=== PATIENT | female | born 1945 | race Caucasian/White ===

== ENCOUNTER 2020-12-25 08:51 | Emergency (ER) | payer OTHER ==
--- OUTSIDE RECORDS SUMMARY | 2020-12-25 08:54 | XMS REPORT | Continuity of Care Document ---
:1945 Author Organization [facility] t Address [address] [place] [address] Care Team Providers Name Role Phone Gisel MEHTA Primary Care Physician Yassine Attending Clinician Unavailable CO19 Attending Clinician Unavailable Libertad Lara MD Attending Clinician Misael Trejo MD Attending Clinician JUNE Attending Clinician Unavailable DR Kj PLASENCIA Attending Clinician Unavailable GISEL Attending Clinician Unavailable STACEY Admitting Clinician Unavailable JUNE Admitting Clinician Unavailable DR Kj PLASENCIA Admitting Clinician Unavailable GISEL Admitting Clinician Unavailable Payers Payer Name Policy Type Policy Effective Date Expiration Date Sour ce Number MEDICAREMEDICARE PART [id number] 2011 Hong lassiterlayo A AND 00:00:00 Worship [id number] 2010- JostinLAKE NORDEN NDMedicare COMMERCIAL MISCMISC [id number] 2016 [place] MEDICARE 00:00:00 Worship [id number] /07/2016-JostinCommer cial Problems Condition Condition Condition Status Onset Resolution Last Treating Co mments Source Name Details Category Date Date Treatment Clinician Date Traumatic Traumatic Disease Active 2018-07 Overview: [place] complete complete 07-20 Shweta oneil tear of tear of 00:00: g of this st right right 00 note rotator rotator might be cuff cuff different from the original. Added automatic ally from request for surgery [id number] Encounter Encounter Problem Active Uni vers for for ity of administra administra [place] tion of tion of Physici COVID-19 COVID-19 ans vaccine vaccine Allergies, Adverse Reactions, Alerts Allergy Allergy Status Severity Reaction(s) Onset Inactive Treating Comm ents Source Name Type Date Date Clinician Makenna Propi Active GI 2018-07 [place]il [place] to Intolerance 0-23 e Metho di adverse 00:00: vomiting st reaction 00 s to drug codeine DA Active SV [facility] 03-21 [place] 00:00: Orthope 00 [facility] [place] Allergy Active Univers CAPS to drug ity of (finding [place] ) Physici ans Family History Family Member Diagnosis Comments Start Date Stop Date Source Natural mother Osteoporosis [place] [facility] Social History Social Habit Start Date Stop Date Quantity Comments Source History of tobacco Cigarette Smoker [place] use Worship Cigarettes smoked 2020-02-05 2020-02-05 [place] current (pack per 00:00:00 00:00:00 Methodi ) - Reported Cigarette 2020-02-05 2020-02-05 [place] pack-years 00:00:00 00:00:00 Worship Tobacco use and 2020-02-05 2020-02-05 Never used [place] exposure 00:00:00 00:00:00 Worship Alcohol intake 2020-02-05 2020-02-05 Current [place] 00:00:00 00:00:00 non-drinker of Worship alcohol (finding) Sex [birth year] [place] 00:00:00 00:00:00 Worship Smoking Status Start Date Stop Date Source Current every day smoker 2020-02-05 00:00:00 Eliezer puente Worship Medications Ordered Filled Start Stop Current Ordering Indication Dosage Frequency Signature Comments Components Source Medication Medication Date Date Medication? Clinician (SIG) Name Name omeprazole Yes 40mg QD Take 1 [place] (PriLOSEC) 6-24 capsule Method i 40 MG 00:00: ([address] capsule 00 total) by mouth daily. fenoprofen 2018-07 Yes 600mg QD Take 600 [place] (NALFON) 1-25 mg by Method[facility] 600 mg 09:24: mouth st tablet 49 nightly. ascorbic 2018-07 Yes 1000mg QD Take 1,000 [place] acid, 1-25 mg by [facility] vitamin C, 09:24: mouth st (vitamin C) 49 daily. 1000 MG tablet cholecalcif Yes Q7D once a [place], 9-13 week. Q Methodi vitamin D3, 00:00: saturdays s t (VITAMIN 00 D3) 5,000 unit capsule omeprazole 2020- No 40mg QD Take 40 mg [place] (PriLOSEC) 03-06 by mouth Meth paulino 40 MG 00:00: 00:[address] capsule 00 :00 needed. Immunizations Ordered Immunization Filled Immunization Date Status Commen ts Source Name Name Pfizer-BioNTech 2020-09-06 Completed Universit y of COVID-19 Vacc 30 14:09:00 [place] [facility] MCG/0.3ML Intramuscular Suspension Pfizer-BioNTech 2020-08-12 Completed Universit y of COVID-19 Vacc 30 13:00:00 [place] [facility] MCG/0.3ML Intramuscular Suspension Vital Signs Vital Name Observation Time Observation Value Comments Source Body height 2020-02-05 11:06:00 170.2 cm [place] [facility] Body weight 2020-02-05 11:06:00 78.744 kg Wale Mcginnis BMI 2020-02-05 11:06:00 27.19 kg/m2 Wale Mcginnis Procedures This patient has no known procedures. Plan of Care Planned Activity Planned Date Details Comments Source Future Scheduled 2021-12-08 COLONOSCOPY SCREENING [facility] Worship Test 00:00:00 [code = COLONOSCOPY SCREENING] Future Scheduled 2021-02-07 INFLUENZA VACCINE [place] [facility] Test 00:00:00 [code = INFLUENZA VACCINE] Future Scheduled 2001 Screening for [facility] thodist Test 00:00:00 malignant neoplasm of lung (procedure) [code = 504198863] Future Scheduled 1996-01-30 BREAST CANCER [facility] thodist Test 00:00:00 SCREENING [code = BREAST CANCER SCREENING] Future Scheduled 1996-01-30 SHINGLES VACCINES [place] [facility] Test 00:00:00 (#1) [code = SHINGLES VACCINES (#1)] Future Scheduled 1964-01-30 Hepatitis C screening [place] [facility] Test 00:00:00 (procedure) [code = 047513773] Future Scheduled 1958 COVID-19 VACCINE (1) Eliezer puente Worship Test 00:00:00 [code = COVID-19 VACCINE (1)] Encounters Start End Encounter Admission Attending Care Care Encounter Source Date/Time Date/Time Type Type Clinicians Facility Department ID 2020-12-18 2020-12-18 Emergency E [facility] [id number] [facility] 13:53:00 13:53:00 2020-08-12 2020-08-12 Appointmen CO19, UTP UTP [id number] Univers 13:00:00 13:00:00 t; CO19, NURSE-COOLE i ty of NURSE-COOL Y [place] EY Physici ans 2020-02-05 2020-02-05 [facility] [id number] [place] 00:00:00 00:00:00 ANDRES 506 Method i 2020-01-01 2020-01-02 [facility] [id number] [place] 00:00:00 00:00:00 ALMA 425 Metho di 2019-10-08 2019-10-09 Outpatient ALVA, [facility] [id number] [place] 00:00:00 00:00:00 ALMA 506 Metho di 2019-09-11 2019-09-11 [facility] 2100 [id number] [place] 00:00:00 00:00:00 ANDRES 530 Method i 2019-05-23 2019-05-24 Outpatient STACEY [facility] [id number] [place] 00:00:00 00:00:00 ANDRES 917 Method i 2019-05-01 2019-05-01 Outpatient STACEY [facility] 2100 [id number] [place] 00:00:00 00:00:00 ANDRES 030 Method i 2019-05-01 2019-05-01 [facility] [id number] [place] 00:00:00 00:00:00 ANDRES 688 Method i 2018-12-31 2018-12-31 Outpatient C ANUEL-SHANNAN [facility] [id number] [place] 13:17:00 23:59:[address] [facility] 2018-04-10 2018-04-10 Outpatient Kj PLASENCIA [facility] [id number] [place] 13:05:00 23:59:00 [facility] 2018-01-01 2018-01-01 Outpatient Kj PLASENCIA [facility] [id number] [place] 14:16:00 23:59:00 [facility] 2017-12-30 2017-12-30 Outpatient Kj PLASENCIA [facility] [id number] [place] 13:29:00 23:59:00 [facility] Results Test Description Test Time Test Comments Results Result [facility] e Comments MRI BRAIN WO/W 2020-12-17 16:39:16 [facility] : 1945 Sex: F CL INICAL INDICATION: R26.81 Unsteadiness on feetR42 Dizziness and giddiness M81.0Age-related osteoporosis without current pathological fractureMODALITY: MyBeautyCompare 3T MRITECHNIQUE: Multiplanar SE, FSE and inversion recovery pulse sequences of the brain were performed without contrast enhancement. Diffusion weighted imaging was utilized. IV contrast, 16 ml Dotarem are injected IV and post-contrast T1 axial and coronal images obtained.IMPRESSION:1 . There are no intracranial abnormalities.2. There is no pathologic intracranial enhancement.3. Stable mild to moderate chronic white matter microvascular ischemia.FINDINGS:COM PARISON: MRI brain 03/10/2020. MRA neck, 12/17/2020 and ultrasound of carotid artery 12/17/2020There are numerous supratentorial foci of increased T2 and FLAIR signal intensity, all subcentimeter in size, consistent with sequelae of chronic white matter microvascular ischemia. There is no evidence of intracranial demyelinating disease.There are no acute infarcts or hemorrhages. There is no acute restriction on diffusion sequences.There are no masses in the brain or extra axial spaces. There is no hydrocephalus.Sella and parasellar structures are normal. Central skull base is intact. No orbital abnormalities are seen.The craniocervical junction is normal without mass or Chiari malformation.The brainstem, midbrain and cerebellum are normal. Bilateral internal auditory canals are normal and symmetric.Normal flow voids are seen intracranially in carotid and vertebrobasilar arteries. The dural venous sinuses are patent.The calvarium is intact. Extracranial soft tissues are unremarkable. There is no confluent paranasal sinus disease. Mastoid air cells are clear.No pathologic intracranial enhancement is observed. MRA NECK WO 2020-12-17 16:16:48 [facility] GU[facility] : 1945 Sex: F CL INICAL INDICATION: R26.81 Unsteadiness on feetR42 Dizziness and giddiness M81.0Age-related osteoporosis without current pathological fractureMODALITY: MyBeautyCompare 3T MRITECHNIQUE: Two dimensional and three dimensional time of flight techniques are utilized. 2D and MIP reconstructions are performed.IMPRESSION: 1. No evidence of significant carotid artery stenosis, ulceration or luminal irregularity in the neck.2. Vertebral arteries are patent throughout the neck without stenosis or luminal irregularity.FINDINGS :COMPARISON: MRI brain studies 03/10/2020 and 12/17/2020. Carotid ultrasound 12/17/2020.Bilateral common carotid arteries are patent .Carotid bulbs are patent without stenosis or ulceration.Bilateral cervical internal carotid arteries are patent to the level of the skull base without significant stenosis or luminal irregularity.Bilatera l vertebral arteries are patent to the level of the skull base. No visible stenosis, filling defect or luminal irregularity.There is no evidence of vascular dissection in the neck.Carotid stenosis measurement - [facility] 195: 3100F US CAROTID 2020-12-17 W/DOPPLER 15:42:34 [facility]K GUADARRAMA : 1945 Sex: F CL INICAL INDICATION: R42 Dizziness and giddinessTECHNIQUE: Realtime sonographic imaging, color and spectral doppler evaluation of the extracranial carotid circulation of the neck were performed bilaterally. Intima-media thickness determination is performed as well.COMPARISON: noneFINDINGS:Bilatera l common carotid and right internal carotid atherosclerotic plaques are noted. The it appear sonographically relatively homogeneous. No definite ulcerations. Based upon internal to common carotid artery diameter ratios, maximal degree of stenosis is 50% or less.Velocities in both right and left common carotid arteries, carotid bulbs and cervical internal carotid arteries are normal bilaterally. There is an elevated peak systolic velocity in the right external carotid artery of unknown significance. The flow velocity ratio is right 1.07, left 0.21. There are no visible arterial dissections.External carotid arteries are patent and normal.Vertebral flow is antegrade and normal bilaterally.Carotid intima-media thickness is 0.1 mm right, 0.1 mm left.IMPRESSION:1. Right: ICA stenosis zero % by velocity criteria.2. Left: ICA stenosis zero % by velocity criteria.3. Bilateral common carotid and right internal carotid artery plaquing is present producing 50% or less stenosis of the vessels based upon internal to common carotid artery diameter ratios. Co nsensus Panel Doppler US Criteria for diagnosis of ICA stenosis 50%: ICA PSV 125 cm/sec, ICA/CCA ratio 2.050-69%:ICA PSV 125-230 cm/sec, ICA/CCA ratio 2.0-4.0 70%: ICA PSV 230 cm/sec, ICA/CCA ratio 4.0Carotid stenosis measurement - [facility] 195: 3100F For official use only - MRI [facility] W/O 2019-04-04 Patient Name: CONT RT 16:31:00 ERIK GUADARRAMA Unit No: [id number] EXAMS: CPT CODE: [id number] MRI [facility] [place] [address] MRI OF THE RIGHT SHOULDER DIAGNOSIS: 1. Full-thickness tear supraspinatus tendon with 2.6 cm of retraction. The tear measures 2.2 cm in AP diameter. 2. Complete tear of the proximal biceps tendon which is retracted distally along with a partial-thickness tear of the subscapularis tendon without retraction. There is subscapularis tendinosis without muscular atrophy. There is an associated tear of the superior labrum. 3. Infraspinatus tendinosis without evidence for tear or retraction. There is volume loss in the muscle without fatty atrophy. COMMENT: COMPARISON: No prior exams available. Scans were performed in the paracoronal, parasagittal and axial planes utilizing T1 , spin density with fat saturation and T2-weighting with and without fat saturation. The rotator cuff is as described. The acromion is horizontal with AC joint degenerative change. The superior labrum is torn. Joint and bursal effusions are present. at 1631 Reported and signed by: Ignacio Ayala MD CC: Zeinab Dillard MD Technologist: DIMITRY VALERA MRI Transcribed D/ (1631) [facility] Orthopedic NAME: ERIK GUADARRAMA [address] [facility] PHYS: GOMMU.01 - Zeinab Dillard : 1945 AGE: 74 SEX: F [place], [place] [address] LOC: Y.MRI PHONE #: [phone] EXAM DATE: 04/04/2019 STATUS: REG CLI FAX #: [phone] RAD #: D/C DT PAGE 1 Signed Report Patient Name: ERIK GUADARRAMA Unit No: [id number] EXAMS: CPT CODE: [id number] MRI UP JNT W/[place] [id number] <Continued> Orig Print D/T: S: 04/04/2019 (1634) [facility] Orthopedic NAME: ERIK GUADARRAMA [address] [facility] PHYS: GOMMU.01 - GoZeinab florence M : 1945 AGE: 74 SEX: F [place], [place] [address] LOC: Y.MRI PHONE #: [phone] EXAM DATE: 04/04/2019 STATUS: REG CLI FAX #: [phone] RAD #: D/C DT PAGE 2 Signed Report BASIC METABOLIC PANEL 2019-03-21 16:33:00 Test Item Value Reference Range Interpretation Comme nts SODIUM (test code = NA) 140 mmol/L 136-145 N POTASSIUM (test code = K) 4.4 mmol/L 3.5-5.1 N CHLORIDE (test code = CL) 103.0 mmol/L 98-107 N CARBON DIOXIDE (test code = 28.1 mmol/L 21-32 N CO2) GLUCOSE (test code = GLU) 78 mg/dL 70-110 N BLOOD UREA NITROGEN (test code 20 mg/dL 7-18 H = BUN) GLOMERULAR FILTRATION RATE 73.5 >60 U nit of measure: (test code = GFR) mL/min/1.7 3 [id number] Range:Healthy A dults >90 mL/min/1.73 m2 For Chronic Kidney Disease: Stage II Mi ld Decrease in GFR 60-9 0 Stage III Moderate Decrease in GFR 30-59 Stage IV Severe Decrease in GFR 15-29 Stage V Kidney Failure <15 CREATININE (test code = CREAT) 0.77 mg/dL 0.55-1.30 N CALCIUM (test code = CA) 9.2 mg/dL 8.2-10.1 N WID-U/S BREAST [id number] 09:03:50Addendum:Typographical error noted. Small subcentimeter cysts are identified at the 2and 9:00 positions. Dilated duct with small cyst at the 2:00 position alsoseen.Impression:1. ACR BI-RADS 2, benign fi ndings.Recommendations: Routine yearly mammographic follow-upWMMMOGRAM DIAGNOSITC UNI RIGHT CAD INC [id number] 09:02:02Exam: Unilateral right diagnostic digital mammogramHistory: Palpable lumpLocation: [id number]:Compari son is made exam of 04/10/18. Focal outpouching within the medial rightbreast implant noted without significant change. The breast parenchyma isheterogeneously dense without change. Benign coarse calcifications persists.The images were reviewed with R2.Sonography of the same day demonstrated small cysts at the 2 and 9:00positions.Impression:ACR BI-RADS 2, benign findings.Recommendations: Routine yearly mammographic follow-up.WMMMOGRAM DIAGNOSTIC BILATERAL INC CAD [id number] 14:23:20 Exam: Bilateral diagnostic digital mammogramLocation: [id number]: Palpable lump on the rightComparison: 08/23/16FINDINGS:No dominant masses or clustered microcalcifications are identified. Migrationof the right implant inferiorly and medially noted in the area of palpableabnormality. Sonographically the implant appeared intact but with focaloutpouching and migration. The breast parenchyma demonstrates scatteredfibroglandular elements without change. Benign coarse calcifications are againseen bilaterally. R2 computer aided detection was utilized as an aid for interpreting theseimages.IMPRESSION:1. ACR BI-RADS 2. Benign findings. Recommendation: Routine yearly mammographic follow-up recommended.[facility]/S BREAST [id number] 14:21:21Exam: Right breast ultrasoundHistory: Breast lumpLocation: [id number]: High resolution color and duplex sonography of all 4 quadrants andretroareolar region of the right breast was performed.Findings:T here is mild inferior migration of the right implant medially with slightoutpouching of the implant but without evidence of separate extracapsular orintracapsular rupture. No solid or cystic masses.Impression:Implant migration inferiorly and medially likely corresponding to the palpableabnormality. No definite rupture.XR SPINE LUMBAR W/FLEX/EXT [id number] 15:16:40Lumbar spine, 5 viewsLocation Code: [id number] HISTORY: LUMBAR RADICULOPATHY & SPONDYLOSISCOMPARISON: None.COMMENTS: AP, oblique, and lateral views of the lumbar spine were obtained.There is approximately 15 degrees apex rightward curvature centered at L2.There is 1 cm anterolisthesis of L4 on L5.There is no acute fracture . Thereis moderate multilevel disc space narrowing with endplate sclerosis andosteophyte formation. There is no abnormal motion or translation with flexionor extension. The soft tissues are unremarkable.IMPRESSION:1. Mild dextroscoliosis.2. Grade 1 anterolisthesis of L4 on L5.3. Moderate multilevel lumbar spondylosis.MRI SPINE LUMBAR W/O [id number] 14:52:35MRI OF THE LUMBAR SPINE WITHOUT CONTRASTLocation: R 16INDICATION: M51.36: OTHER INTERVERTEBRAL DISC DEGENERATION, LUMBAR REGION. COMPARISON: NoneTechnique: Sagittal T1, sagittal T2, sagittal T2 fat suppressed, axial T1, and axial J9yftlydxf images of the lumbar spine were obtained without contrast. DISCUSSION:Number of non-rib bearing lumbar vertebral bodies: 5.Alignment: Normal lordosis. Mild thoracolumbar dextroscoliosis is centered atapproximately L2-L3.Vertebrae: No definite evidence for fracture, or neoplasm.Conus medullaris: Normal, ends at L1-B1Wzqzk equina: No masses or arachnoiditis.Po sterior paraspinal muscles: Well preserved. No signal abnormalities.Soft tissues: Apparent posterior incision signal changes. A small A3movkczgcnbow lesion in the upper left kidney may be a cyst.Mild to moderate multilevel disc degeneration is most prominent at L1-L2 andL2-L3. There are nonspecific in flammatory endplate changes at L1-L2 and L2-L3.L1-L2: Mild canal stenosis due to disc bulge and ligamentum flavum thickening.The left lateral recess is slightly effaced. Mild bilateral foraminal stenosesdue to disc bulge and facet arthrosis.L2-L3: There is mild retrolisthesis of L2 on L3. Mild canal stenosis due todisc bulge and ligamentum flavum thickening. The left lateral recess isslightly effaced. Mild to moderate left foraminal stenoses due to disc bulgeand facet arthrosis. No significant rightforaminal stenosis.L3-L4: There is mild retrolisthesis of L3 on L4. Mild to moderate canalstenosis due to disc bulge and ligamentum flavum thickening. Both lateralrecesses are slightly effaced. There is a small left posterior epiduralsynovial cyst. Mild right and eizg-yp-bkzchpmw left foraminal stenosis due todisc bulge and facet arthrosis.L4-L5: Grade 1 anterolisthesis of L4 on L5 is due to advancedfacet arthrosis.Apparent laminectomy changes without significant canal stenosis. Severe rightand moderate left foraminal stenoses due to uncovered disc bulge and facetarthrosis.L5-S1: Patent canal and foramina.IMPRESSION:1. Mild to moderate multilevel disc degeneration, most prominent at L1-L2 andL2-L3. There are nonspecific inflammatory endplate changes at L1-L2 and L2-L3. Mild thoracolumbar dextroscoliosis is centered at approximately L2-L3.2. Grade 1 anterolisthesis of L4 on L5 due to advanced facet arthrosis.Apparent laminectomy changes at L4- L5.3. Multilevel degenerative canal stenoses - mild to moderate at L3-L4.4. Multilevel bilateral degenerative foraminal stenoses - severe right andmoderate left at L4-L5.CT CHEST W/O [id number] 14:13:59CT chest without contrast.Location Code: [id number] HISTORY: Chest pain, smokerCOMPARISON: NoneTechnique: Helical CT of the chest was performed without contrast. Thin sectionaxial, sagittal and coronalimages were obtained. Automatic exposure controlwas utilized. FINDINGS:Mild centrilobular emphysematous changes are noted within the lungs. The lungsare otherwise clear. There is no nodule, mass, consol idation or effusion. Thecentral airways are patent. There is no mediastinal, hilar, or axillary adenopathy. There is no pericardialeffusion. The heart is not enlarged. The mediastinal vasculature isunremarkable. There is no mediastinal hematoma or fluid collection.Images through the upper abdomen are unremarkable. Mild degenerative changes are noted throughout the spine. Peripherallycalcified breast implants are noted. The skin and surrounding soft tissues areunremarkable.IMPRESSION: Mild emphysema.Otherwise, no acute intrathoracic abnormality.XR RIBS RIGHT UNIL 3VW W/PA [id number] 13:55:33Right rib series, a views.Location Code: D4 CLINICAL HISTORY: Right rib pain.COMMENT: Frontal view of the chest shows the lungs to be clear with nopneumothorax, consolidation, or effusion. The cardiomediastinal silhouette isunremarkable. AP and oblique views of the right ribs demonstrate no displaced fracture. Thesoft tissues are unremarkable.IMPRESSION: No acute abnormality.XR CHEST 2 VIEW 2016-08-30 13:53:30PA and lateral chest, 2 views.Location code: [id number] HISTORY: Rib pain, coughCOMPARISON: 02/04/2016COMMENTS: The lungs are clear and well inflated. The costophrenic angles aresharp. The cardiomediastinal silhouette is unremarkable. The bones are intact.IMPRESSION: Stable chest with no acute abnormality.MAMMOGRAM SCREENING CAD INC [id number] 09:34:51 Exam: Bilateral digital mammogramLocation: [id number]: Routine screening.FINDINGS:No dominant massesor clustered microcalcifications are identified. Bilateralsubpectoral breast implants again demonstrate capsular calcifications withoutchange from 01/31/12. The breast parenchyma is otherwise heterogeneously densewith scattered coarse benign calcifications bilaterally without intervalchange. R2 computer aided detection was utilized as an aid for interpreting theseimages.IMPRESSION:1. ACR BI-RADS 2. Benign findings. Recommendation: Routine yearly mammographic follow-up recommended. [employer] AccreditationFDA CertifiedBoard Certified Radiologists(ARRT) Registered Mammography TechnologistsNOTE: 1. A negative report should not delay biopsy if a dominant or clinicallysuspicious mass is present. 4 to 8% of cancers are not identified by x-ray.2. A negative report may reinforce clinical impression.3. Adenosis and dense breasts may obscure an underlying neoplasm.4. False positive results average 6 to 10%.5. Complete assessment of BI-RADS wording:A. Category 0 = Needs Additional Imaging Evaluation.B. Category 1 = Negative mammogram.C. Category 2 = BenignFinding.D. Category 3 = Probably Benign Finding - Short Interval Followup Suggested.E. Category 4 = Suspicious Abnormality.F. Category 5 = Highly Suggestive Of Malignancy.G. Category 6 = Known Malignancy.
[2020-12-25 10:11] LABS: Absolute Lymphocytes (CBC) 2.1 K/uL (0.7-4.9); Basophils % 1.2 % (0-1.3); Hematocrit 42.8 % (36.0-45.0); Lymphocytes % 34.6 % (15.3-44.8); RBC Red Blood Cell Count 4.76 M/uL (3.86-4.86)
[2020-12-25 10:28] LABS: ALT/SGPT 20 U/L (12-78); AST/SGOT 17 U/L (15-37); Albumin 3.9 g/dL (3.4-5.0); Alkaline Phosphatase 110 U/L (45-117); BUN Blood Urea Nitrogen 12 mg/dL (7-18); Bicarbonate 30 mmol/L (21-32); Bilirubin Direct < 0.1 mg/dL (0-0.2); Bilirubin Total 0.3 mg/dL (0.2-1.0); Glucose Level 87 mg/dL (74-106); Lipase 87 U/L (73-393); Protein, Total 7.3 g/dL (6.4-8.2); Sodium Level 141 mmol/L (136-145)
--- NOTE | 2020-12-25 11:19 | EDPHYS ---
Physician Documentation [facility] Name: Carlene Choi Age: 75 yrs Sex: Female : 1945 Arrival Date: 12/25/2020 Time: 08:55 Bed 18 Private MD: ED Physician Sanchez Reina HPI: 12/25 11:15 This 75 yrs old Female presents to ER via Wheelchair with complaints of ma2 Tremors. 11:15 Onset: The symptoms/episode began/occurred gradually, 2 day(s) ago. Associated signs ma2 and symptoms: Pertinent negatives: ataxia, chest pain, combativeness, confusion. Severity of symptoms: At their worst the symptoms were very mild in the emergency department the symptoms are unchanged. The patient has experienced similar episodes in the past. had normal mri brain and cta head neck 2 days ago . Historical: - Allergies: 09:49 Darvon; ss 09:49 Codeine; ss - Home Meds: 09:49 Omeprazole Oral [Active]; ss - PMHx: 09:49 GERD; High Cholesterol; ss - PSHx: 09:49 R wrist; R shoulder; bilateral knee replacement; back surgery; ss 09:49 Hysterectomy; ss - Immunization history:: Adult Immunizations up to date. - Social history:: Smoking status: Patient reports the use of cigarette tobacco products, smokes one pack cigarettes per day. - Family history:: not pertinent. ROS: 11:15 Constitutional: Negative for fever, chills, and weight loss. ma2 11:15 All other systems are negative. Exam: 11:15 Constitutional: This is a well developed, well nourished patient who is awake, alert, ma2 and in no acute distress. Chest/axilla: Normal chest wall appearance and motion. Nontender with no deformity. No lesions are appreciated. Cardiovascular: Regular rate and rhythm with a normal S1 and S2. No gallops, murmurs, or rubs. Normal PMI, no JVD. No pulse deficits. Respiratory: Lungs have equal breath sounds bilaterally, clear to auscultation and percussion. No rales, rhonchi or wheezes noted. No increased work of breathing, no retractions or nasal flaring. Abdomen/GI: Soft, non-tender, with normal bowel sounds. No distension or tympany. No guarding or rebound. No evidence of tenderness throughout. Back: No spinal tenderness. No costovertebral tenderness. Full range of motion. Skin: Warm, dry with normal turgor. Normal color with no rashes, no lesions, and no evidence of cellulitis. MS/ Extremity: Pulses equal, no cyanosis. Neurovascular intact. Full, normal range of motion. Neuro: Awake and alert, GCS 15, oriented to person, place, time, and situation. Cranial nerves II-XII grossly intact. Motor strength 5/5 in all extremities. Sensory grossly intact. Cerebellar exam normal. Normal gait. had + bilateral upper and lower tremor 11:19 CT study not indicated or reported. Reason for not performing CT: mri brain done ma2 outside and is normal Vital Signs: 09:42 BP 134 / 81; Pulse 65; Resp 16; Temp 97.5; Pulse Ox 100% on R/A; Weight 73.03 kg; ss Height 5 ft. 7 in. (170.18 cm); Pain 0/10; 11:16 BP 132 / 59; Pulse 61; Resp 18 S; Pulse Ox 98% on R/A; ca1 11:46 BP 126 / 67; Pulse 61; Resp 16 S; Pulse Ox 100% on R/A; ca1 09:42 Body Mass Index 25.22 (73.03 kg, 170.18 cm) ss MDM: 11:15 Differential diagnosis: metabolic disorder, drug effects, tremor intentional. Data ma2 reviewed: vital signs, nurses notes. Counseling: I had a detailed discussion with the patient and/or guardian regarding: the historical points, exam findings, and any diagnostic results supporting the discharge/admit diagnosis, the presence of at least one elevated blood pressure reading (>120/80) during this emergency department visit, the need for outpatient follow up. ED course: discussed with dr. garcia he states he will be able to see her in a week and recommends propranolol bid . 11:18 Patient medically screened. 2 12/25 09:51 Order name: Basic Metabolic Panel; Complete Time: 10:46 12/25 09:51 Order name: CBC with Diff; Complete Time: 10:46 il12/25 09:51 Order name: Hepatic Function; Complete Time: 10:46 il12/25 09:51 Order name: Lipase; Complete Time: 10:46 ma12/25 09:51 Order name: IV Saline Lock; Complete Time: 10:07 [facility] 12/25 11:34 Order name: Urine Dipstick-Ancillary [facility] 12/25 09:51 Order name: Labs collected and sent; Complete Time: 10:07 [facility] 12/25 09:53 Order name: Urine Dipstick-Ancillary (obtain specimen); Complete Time: 11:35 [facility] Administered Medications: No medications were administered Disposition: 12/25/20 11:18 Discharged to Home. Impression: Tremor, unspecified. - Condition is Stable. - Discharge Instructions: Tremor. - Prescriptions for Propranolol 10 mg Oral Tablet - take 1 tablet by ORAL route 2 times per day; 100 tablet. - Medication Reconciliation Form, Thank You Letter, Antibiotic Education, Prescription Opioid Use form. - Follow up: Charly Garcia MD; When: Tomorrow; Reason: Continuance of care. Signatures: Dispatcher [employer] [facility] Yumiko Curtis RN RN ss Sanchez Reina MD MD [facility] Dunia Miller RN RN ca1 Corrections: (The following items were deleted from the chart) 11:47 11:18 12/25/2020 11:18 Discharged to Home. Impression: Tremor, unspecified. Condition ca1 is Stable. Forms are Medication Reconciliation Form, Thank You Letter, Antibiotic Education, Prescription Opioid Use. Follow up: Charly Garcia; When: Tomorrow; Reason: Continuance of care. il2
--- NOTE | 2020-12-25 11:19 | ER ---
Nurse's Notes [facility] Name: Carlene Choi Age: 75 yrs Sex: Female : 1945 Arrival Date: 12/25/2020 Time: 08:55 Bed 18 Private MD: Diagnosis: Tremor, unspecified Presentation: 12/25 09:42 Chief complaint: Patient states: Tremors that began 2 days ago and became worse since ss last night. Pt recently had many tests done to rule out CVA at [facility] which all came back negative. Coronavirus screen: Client denies travel out of the [place] in the last 14 days. Ebola Screen: Patient denies exposure to infectious person. Patient denies travel to an Ebola-affected area in the 21 days before illness onset. Initial Sepsis Screen: Does the patient meet any 2 criteria? No. Patient's initial sepsis screen is negative. Does the patient have a suspected source of infection? No. Patient's initial sepsis screen is negative. Risk Assessment: Do you want to hurt yourself or someone else? Patient reports no desire to harm self or others. Onset of symptoms is unknown. 09:42 Method Of Arrival: Wheelchair ss 09:42 Acuity: [place]AT[place] 3 ss Historical: - Allergies: 09:49 Darvon; ss 09:49 Codeine; ss - Home Meds: 09:49 Omeprazole Oral [Active]; ss - PMHx: 09:49 GERD; High Cholesterol; ss - PSHx: 09:49 R wrist; R shoulder; bilateral knee replacement; back surgery; ss 09:49 Hysterectomy; ss - Immunization history:: Adult Immunizations up to date. - Social history:: Smoking status: Patient reports the use of cigarette tobacco products, smokes one pack cigarettes per day. - Family history:: not pertinent. Screenin:00 Abuse screen: Denies threats or abuse. Denies injuries from another. Abuse screen: ca1 Denies threats or abuse. Nutritional screening: No deficits noted. Tuberculosis screening: No symptoms or risk factors identified. Fall Risk Secondary diagnosis (15 points) impaired mobility, IV access (20 points). Total Molina Fall Scale indicates Low Risk Score (25-44 pts). Fall prevention measures have been instituted. Side Rails Up X 2 Family Present and informed to notify staff if they need to leave bedside As available Patient and Family Educated on Fall Prevention Program and strategies. Assessment: 10:00 General: Appears in no apparent distress. uncomfortable, Behavior is calm, cooperative, ca1 appropriate for age. General: Pt has involuntary tremors on legs, and body. Pain: Denies pain. Neuro: Level of Consciousness is awake, alert, obeys commands, Oriented to person, place, time, situation. Cardiovascular: Heart tones S1 S2 present Capillary refill < 3 seconds Patient's skin is warm and dry. Respiratory: Airway is patent Respiratory effort is even, unlabored, Respiratory pattern is regular, symmetrical, Breath sounds are clear bilaterally. GI: Abdomen is flat, non-distended, Bowel sounds present X 4 quads. Abd is soft and non tender X 4 quads. : EENT: No signs and/or symptoms were reported regarding the EENT system. Derm: Skin is intact, is healthy with good turgor, Skin is pink, warm \T\ dry. Musculoskeletal: Circulation, motion, and sensation intact. Capillary refill < 3 seconds. 11:15 Reassessment: Patient appears in no apparent distress at this time. Patient and/or ca1 family updated on plan of care and expected duration. Pain level reassessed. Patient is alert, oriented x 3, equal unlabored respirations, skin warm/dry/pink. 11:24 Reassessment: Pt ambulated to restroom with steady gait. ca1 11:45 Reassessment: Patient appears in no apparent distress at this time. Patient and/or ca1 family updated on plan of care and expected duration. Pain level reassessed. Patient is alert, oriented x 3, equal unlabored respirations, skin warm/dry/pink. Vital Signs: 09:42 BP 134 / 81; Pulse 65; Resp 16; Temp 97.5; Pulse Ox 100% on R/A; Weight 73.03 kg; ss Height 5 ft. 7 in. (170.18 cm); Pain 0/10; 11:16 BP 132 / 59; Pulse 61; Resp 18 S; Pulse Ox 98% on R/A; ca1 11:46 BP 126 / 67; Pulse 61; Resp 16 S; Pulse Ox 100% on R/A; ca1 09:42 Body Mass Index 25.22 (73.03 kg, 170.18 cm) ED Course: 08:55 Patient arrived in ED. ds1 09:44 Triage completed. ss 09:49 Arm band placed on right wrist. ss 09:50 Sanchez Reina MD is Attending Physician. ma2 09:55 Dunia Miller, RN is Primary Nurse. ca1 10:00 Patient has correct armband on for positive identification. Placed in gown. Bed in low ca1 position. Call light in reach. Side rails up X2. Pulse ox on. NIBP on. Warm blanket given. 10:01 Initial lab(s) drawn, by me, sent to lab. Inserted saline lock: 22 gauge in left ca1 antecubital area, using aseptic technique. Blood collected. 11:18 Charly Rodriguez MD is Referral Physician. ma2 11:46 No provider procedures requiring assistance completed. IV discontinued, intact, ca1 bleeding controlled, No redness/swelling at site. Pressure dressing applied. Administered Medications: No medications were administered Outcome: 11:18 Discharge ordered by . wa2 11:46 Discharged to home via wheelchair, with significant other. ca1 11:46 Condition: stable 11:46 Discharge instructions given to patient, Instructed on discharge instructions, follow up and referral plans. medication usage, Demonstrated understanding of instructions, follow-up care, medications, Prescriptions given X 1. 11:47 Patient left the ED. ca1 Signatures: Slime [place]on ds1 Yumiko Curtis, RN RN Sanchez Reina MD MD [facility] Dunia Miller, RN RN ca1
[2020-12-25 11:35] LABS: Urine Blood Negative (Negative); Urine Glucose Negative (Negative); Urine Protein Negative (Negative); Urine Specific Gravity 1.015 (1.005-1.030)
[2020-12-25 11:55] VITALS: TEMP 97.5
[2020-12-25 11:58] VITALS: BP 126/67; O2SAT 100
== END 2020-12-25 11:47 | disposition home or self-care (01) ==
LOC: ER 08:51
DX: R25.1 Tremor, unspecified (principal); K21.9 Gastro-esophageal reflux disease without esophagitis; E78.00 Pure hypercholesterolemia, unspecified; F17.210 Nicotine dependence, cigarettes, uncomplicated; Z96.653 Presence of artificial knee joint, bilateral
CPT/HCPCS: 36415; 80048; 80076; 81003; 83690; 85025